=== PATIENT | female | born 1985 | race Caucasian/White ===

== ENCOUNTER → 2017-03-25 03:50 | Observation (INO) ==
--- NOTE | 2017-03-25 03:42 | Discharge Summary ---
Date of Encounter: 03/25/17 Time of Encounter: 03:42 - Discharge Diagnosis (1) 39 weeks gestation of Priority: Primary Status: Acute Comments: TERM IUP with contractions following intercourse No cervical change after 2 hours of observation False labor (2) NST (non-stress test) reactive Priority: Secondary Status: Acute Comments: 135 bpm baseline +15x15 accels no decels noted - Discharge Medications Home Medications: One Tablet 1 tab PO DAILY 03/25/17 [History] Allergies/Adverse Reactions: Allergies naproxen Allergy (Verified 03/25/17 01:24) Hives Date of admission: 03/25/17 01:06 Discharging clinician: Denice Riggs Anticipated date of discharge: 03/25/17 - Patient Status Disposition: Home, Self-Care Condition: Good Functional capacity at discharge: independent ambulation - Discharge Instructions Additional Instructions: LABOR AND DELIVERY DISCHARGE INSTRUCTIONS Signs and Symptoms to be Reported to your Doctor Immediately: * Sudden gush, continuous or intermittent lead of fluid from vagina (note the time of gush and color of fluid) * Onset of bright red vaginal bleeding with or without pain (if you had a vaginal exam during this visit you may notice some dark red spotting. This is normal.) * Contractions that are 5 minutes apart (from the beginning of one contraction to the beginning of the next) and last 45-60 seonds; contractions that you can no longer walk, talk or laugh through. * A change in the baby's activity. This could be an increase or decrease in activity. * Severe headache which does not go away with tylenol. * Sudden swelling in the face, hands, arms and/or legs. * Upper abdominal pain - sometimes associated with heartburn or nausea and is not relieved by Maalox, Mylanta or Tums. * Kick Counts __ One hour after a meal, lay down on one side in a quiet place. Count the number of time the baby moves during an hour. 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 Patient was assessed and triaged per RN. SVE /-3 no cervical change following 2 hours of observation. Patient reports +FM and irregular contractions. Time Attestation: Total time spent providing and/or coordinating discharge services: Time Spent: Less than 30 minutes Exam - Other Additional findings: FHR 135 bpm moderate variability +15x15 accels no decels noted. Cat. 1 tracing. Contractions 1.5-4 min apart.
== END | disposition home or self-care (01) ==
LOC: 1NENULAB
PROVIDERS: ADMIT Student in an Organized Health Care Education/Training Program; ATTEND Student in an Organized Health Care Education/Training Program